=== PATIENT | male | born 1965 | race Caucasian/White ===

== ENCOUNTER 2017-04-05 19:26 | Emergency (ER) | payer BC ==
[~2017-04-05] VITALS: Ht 182.9 cm; Wt 106.4 kg
[~2017-04-05 19:26] MED LIST: CIPROFLOXACN500 MG PO; KEFLEX500 MG OR; MEDDOSEPAK OR; METRONIDAZOL500 MG PO; OXYCONTIN30 M1 PO; OXYCONTIN40 MG PO; PERCOCET 10/31 COMBO PO; PERCOCET1 TA1 OR; PERCOCET1 TA4 PO; ROBITUSSIN AC OR; TYLENOL500 MG OR; ZOFRAN ODT4 MG PO
[2017-04-05 22:19] LABS: INFLUENZA A NONE DETECTED (NONE DETECT); INFLUENZA B POSITIVE (NONE DETECT)
[2017-04-05] MEDS ORDERED: ROBITUSSIN AC10 ML PO (22:35)
[2017-04-05] MEDS ORDERED: TAM75CAP PO (22:35)
[2017-04-05 22:50] VITALS: BP 123/75
== END 2017-04-05 22:50 | disposition home or self-care (01) | DRG 153 ==
LOC: ED 19:26
PROVIDERS: Emergency Medicine
DX: J11.1 Influenza due to unidentified influenza virus with other respiratory manifestations (principal)

== ENCOUNTER 2019-12-08 18:36 | Emergency (ER) | payer BC ==
[~2019-12-08] VITALS: Ht 182.9 cm; Wt 86.3 kg
[~2019-12-08 18:36] MED LIST changes: +ROBITUSSIN AC10 ML PO; +TAM75CAP PO
[2019-12-08] MEDS ORDERED: BUPRENORPHINE H1 MI2 PO (18:59)
[2019-12-08] MEDS ORDERED: KEFLEX500 M1 PO (19:56)
[2019-12-08 20:05] VITALS: BP 143/82
== END 2019-12-08 20:05 | disposition home or self-care (01) | DRG 605 ==
LOC: ED 18:36
PROC: 0HQLXZZ Repair Left Lower Leg Skin, External Approach (ICD-10-PCS; principal; 2019-12-08)
DX: S81.012A Laceration without foreign body, left knee, initial encounter (principal); W29.3XXA Contact with powered garden and outdoor hand tools and machinery, initial encounter; Y93.H9 Activity, other involving exterior property and land maintenance, building and construction; Y92.007 Garden or yard of unspecified non-institutional (private) residence as the place of occurrence of the external cause

== ENCOUNTER 2020-08-24 18:05 | Emergency (ER) | payer BC ==
[~2020-08-24] VITALS: Ht 182.9 cm; Wt 86.3 kg
[~2020-08-24 18:05] MED LIST changes: +BUPRENORPHINE H1 MI2 PO; +KEFLEX500 M1 PO
[2020-08-24] MEDS ORDERED: DULERA1 AER IN (20:04)
[2020-08-24] MEDS ORDERED: AZITHROMYCIN500 MG PO (20:04)
[2020-08-24] MEDS ORDERED: MEDDOSEPAK PO (20:04)
[2020-08-24] MEDS ORDERED: VENTOLIN HFA IN (20:04)
[2020-08-24] MEDS ORDERED: ALBUTEROL SUL0.083 % IN (20:04)
[2020-08-24 20:13] VITALS: BP 145/87
== END 2020-08-24 20:13 | disposition home or self-care (01) | DRG 192 ==
LOC: ED 18:05
DX: J44.9 Chronic obstructive pulmonary disease, unspecified (principal); T48.6X6A Underdosing of antiasthmatics, initial encounter; Z91.128 Patient's intentional underdosing of medication regimen for other reason